=== PATIENT | female | born 1945 | race Caucasian/White ===

== ENCOUNTER 2018-03-21 10:30 | Emergency (ER) | payer MEDICARE, OTHER ==
--- NOTE | 2018-03-21 11:43 | ER Document Report ---
ED Medical Screen (RME) - General Chief Complaint: Accidental Overdose Stated Complaint: POSSIBLE OVERDOSE Time Seen by Provider: 03/21/18 11:14 Mode of Arrival: Ambulatory Information source: Patient Notes: This is a 72-year-old female with a history of hypertension and GERD who took her 's morning medicines by accident. The ingestion was at 8:50 AM. Patient denies any chest pain, shortness of breath, dizziness or syncope. The medicines she ingested are as follows: Eliquis x1 Finasteride 5 mg Metoprolol 50 mg (regular release) Losartan 50 mg Amlodipine 5 mg Myrbetriq 50 mg Potassium Debra Case was discussed with poison control. They recommended monitoring for 6 hours in the ER from the time of ingestion. Thereafter, on discharge, give patient instructions on orthostatic hypotension over the next 12-24 hours given that the amlodipine will not peak for 8-12 hours. TRAVEL OUTSIDE OF THE [place] IN LAST 30 DAYS: No - Related Data Allergies/Adverse Reactions: meperidine [From Demerol] Allergy (Verified 03/21/18 10:31) Sulfa (Sulfonamide Antibiotics) Adverse Reaction (Verified 03/21/18 10:31) Past Medical History - Social History Chew tobacco use (# tins/day): No Frequency of alcohol use: None Drug Abuse: None - Past Medical History Cardiac Medical History: Reports: Hx Hypertension Renal/ Medical History: Denies: Hx Peritoneal Dialysis Physical Exam - Vital signs Vitals: Temp Pulse Resp BP Pulse Ox 98.6 F 60 16 148/77 H 98 03/21/18 10:38 03/21/18 10:38 03/21/18 10:38 03/21/18 10:38 03/21/18 10:38 Course - Vital Signs Vital signs: Temp Pulse Resp BP Pulse Ox 98.6 F 60 16 148/77 H 98 03/21/18 10:38 03/21/18 10:38 03/21/18 10:38 03/21/18 10:38 03/21/18 10:38
[2018-03-21 12:05] LABS: ABSOLUTE BASOPHILS # (AUTO) 0.1 10^3/uL (0.0-0.2); ABSOLUTE EOSINOPHILS # (AUTO) 0.1 10^3/uL (0.0-0.6); ABSOLUTE LYMPHOCYTES (AUTO) 1.4 10^3/uL (0.5-4.7); ABSOLUTE MONOCYTES (AUTO) 0.7 10^3/uL (0.1-1.4); ABSOLUTE NEUT (AUTO) 4.4 10^3/uL (1.7-8.2); BASOPHILS % (AUTO) 1.1 % (0-2); EOSINOPHILS % (AUTO) 1.9 % (0-6); HEMATOCRIT 40.7 % (36.0-47.0); LYMPHOCYTES % (AUTO) 20.9 % (13-45); MEAN CORPUSCULAR HEMOGLOBIN 28.7 pg (27.0-33.4); MEAN CORPUSCULAR HGB CONC 34.5 g/dL (32.0-36.0); MEAN CORPUSCULAR VOLUME 83 fl (80-97); MONOCYTES % (AUTO) 10.3 % (3-13); PLATELET COUNT 300 10^3/uL (150-450); RED CELL DISTRIBUTION WIDTH 13.6 % (11.5-14.0); SEGMENTED NEUTROPHILS % (AUTO) 65.8 % (42-78); TOTAL CELLS COUNTED % (AUTO) 100 %; WHITE BLOOD COUNT 6.7 10^3/uL (4.0-10.5)
--- NOTE | 2018-03-21 12:23 | ER Document Report ---
ED General - General Chief Complaint: Accidental Overdose Stated Complaint: POSSIBLE OVERDOSE Time Seen by Provider: 03/21/18 11:14 Mode of Arrival: Ambulatory TRAVEL OUTSIDE OF THE [place] IN LAST 30 DAYS: No - HPI Notes: Patient is a 72-year-old female that presents to the emergency department for chief complaint of accidental overdose. At 9 AM this morning patient states she accidentally took her 's medication. She states daily she puts them in a cup for him to take. She states there was a lot going on and she did not realize she was taking his medicine instead of hers. She is currently asymptomatic. She denies having any symptoms throughout today. She denies any intentional overdose or suicidal thoughts. She denies nausea, vomiting, lightheadedness and near syncope. Listed below are the medications she took. Eliquis x1 Finasteride 5 mg Metoprolol 50 mg (regular release) Losartan 50 mg Amlodipine 5 mg Myrbetriq 50 mg Potassium Debra Past Medical History: Hypertension, GERD Past Surgical History: Hysterectomy Social History: Denies drugs alcohol and tobacco Family History: Reviewed and noncontributory for presenting illness Allergies: Reviewed, see documented allergy list. REVIEW OF SYSTEMS: CONSTITUTIONAL : No fever No chills No diaphoresis No recent illness EENT: No vision changes No congestion No sore throat CARDIOVASCULAR: No chest pain No palpitations RESPIRATORY: No shortness of breath No cough No difficulty breathing GASTROINTESTINAL: No abdominal pain No nausea No vomiting No diarrhea GENITOURINARY: No dysuria No hematuria No difficulty urinating MUSCULOSKELETAL: No back pain No leg pain No arm pain SKIN: No rashes No lesions LYMPHATIC: No swollen, enlarged glands. NEUROLOGICAL: No lightheadedness No headache No weakness No paresthesias PSYCHIATRIC: No anxiety No depression PHYSICAL EXAMINATION: Vital signs reviewed, nursing noted reviewed. GENERAL: Well-appearing, well-nourished and in no acute distress. HEAD: Atraumatic, normocephalic. EYES: Eyes appear normal, extraocular movements intact, sclera anicteric, conjunctiva are normal. ENT: nares patent, oropharynx clear without exudates. Moist mucous membranes. NECK: Normal range of motion, supple without lymphadenopathy LUNGS: Breath sounds clear to auscultation bilaterally and equal. No wheezes rales or rhonchi. HEART: Regular rate and rhythm without murmurs ABDOMEN: Soft, nontender, normoactive bowel sounds. No rebound, guarding, or rigidity. No masses appreciated. EXTREMITIES: Nontender, good range of motion, no pitting or edema. NEUROLOGICAL: No focal neurological deficits. Moves all extremities spontaneously Motor and sensory grossly intact on exam. PSYCH: Normal mood, normal affect. SKIN: Warm, Dry, normal turgor, no rashes or lesions noted on exposed skin - Related Data Allergies/Adverse Reactions: meperidine [From Demerol] Allergy (Verified 03/21/18 10:31) Sulfa (Sulfonamide Antibiotics) Adverse Reaction (Verified 03/21/18 10:31) Past Medical History - General Information source: Patient - Social History Smoking Status: Never Smoker Chew tobacco use (# tins/day): No Frequency of alcohol use: None Drug Abuse: None Family History: Reviewed & Not Pertinent Patient has suicidal ideation: No Patient has homicidal ideation: No - Past Medical History Cardiac Medical History: Reports: Hx Hypertension Renal/ Medical History: Denies: Hx Peritoneal Dialysis Physical Exam - Vital signs Vitals: Temp Pulse Resp BP Pulse Ox 98.6 F 60 16 148/77 H 98 03/21/18 10:38 03/21/18 10:38 03/21/18 10:38 03/21/18 10:38 03/21/18 10:38 Course - Re-evaluation Re-evalutation: 03/21/18 12:22 Vitals reviewed. Nursing notes reviewed. Patient is currently asymptomatic. Poison control was contacted and recommended observation for 6 hours post ingestion. Patient will be monitored until 3 PM at which point if she is hemodynamically stable she will be discharged home. I did discuss orthostasis and potential for hypotension with her. She is currently resting comfortably and will continue to be monitored. 03/21/18 15:19 Patient reevaluated and has remained asymptomatic. Her blood pressure and heart rate are stable. She was counseled on symptoms of orthostasis to monitor for for the remainder of the evening. She was again encouraged to stay well- hydrated. She is tolerating oral intake. She will follow closely with her primary care for reevaluation as needed in the next few days. She will return for any new or worsening symptoms. She is stable at discharge. Laboratory 03/21/18 03/21/18 11:50 11:50 WBC 6.7 RBC 4.90 Hgb 14.0 Hct 40.7 MCV 83 MCH 28.7 MCHC 34.5 RDW 13.6 Plt Count 300 Seg Neutrophils % 65.8 Lymphocytes % 20.9 Monocytes % 10.3 Eosinophils % 1.9 Basophils % 1.1 Absolute Neutrophils 4.4 Absolute Lymphocytes 1.4 Absolute Monocytes 0.7 Absolute Eosinophils 0.1 Absolute Basophils 0.1 Sodium 135.1 L Potassium 4.6 Chloride 94 L Carbon Dioxide 34 H Anion Gap 7 BUN 15 Creatinine 0.72 Est GFR ( Amer) > 60 Est GFR (Non-Af Amer) > 60 Glucose 96 Calcium 10.2 Total Bilirubin 0.8 Direct Bilirubin 0.4 Neonat Total Bilirubin Not Reportable Neonat Direct Bilirubin Not Reportable Neonat Indirect Bili Not Reportable AST 31 ALT 29 Alkaline Phosphatase 56 Total Protein 7.3 Albumin 4.8 - Vital Signs Vital signs: Temp Pulse Resp BP Pulse Ox 98.6 F 60 14 138/75 H 98 03/21/18 10:38 03/21/18 10:38 03/21/18 14:11 03/21/18 14:11 03/21/18 14:01 - Laboratory Result Diagrams: 03/21/18 11:50 03/21/18 11:50 Laboratory results interpreted by me: 03/21/18 11:50 Sodium 135.1 L Chloride 94 L Carbon Dioxide 34 H Discharge - Discharge Clinical Impression: Accidental overdose Qualifiers: Encounter type: initial encounter Qualified Code(s): T50.901A - Poisoning by unspecified drugs, medicaments and biological substances, accidental (unintentional), initial encounter Condition: Stable Disposition: HOME, SELF-CARE Instructions: Orthostatic Hypotension ([facility]) Additional Instructions: Please return to the emergency department if you have any worsening, or concern of your symptoms. Please return to the emergency department if you develop chest pain, difficulty breathing, severe abdominal pain, or ongoing vomiting. Please follow-up with your primary care physician in 2-3 days and any other recommended physicians. If prescribed, take all medications as directed. If you have any questions or concerns do not hesitate to return the emergency department for evaluation. You were provided information on orthostatic hypotension. This is when your blood pressure transiently drops. Because of the medication you ingested you may feel similar symptoms. If you feel lightheaded you should return to the emergency room for reevaluation. Stay well-hydrated this evening to prevent any drop in your blood pressure.
[2018-03-21 12:26] LABS: ALANINE AMINOTRANSFERASE 29 U/L (9-52); ALBUMIN 4.8 g/dL (3.5-5.0); ALKALINE PHOSPHATASE 56 U/L (38-126); ANION GAP 7 (5-19); ASPARTATE AMINO TRANSFERASE 31 U/L (14-36); BILIRUBIN,DIRECT 0.4 mg/dL (0.0-0.4); BILIRUBIN,TOTAL 0.8 mg/dL (0.2-1.3); BLOOD UREA NITROGEN 15 mg/dL (7-20); CALCIUM 10.2 mg/dL (8.4-10.2); CARBON DIOXIDE 34 mmol/L (22-30); CHLORIDE 94 mmol/L (98-107); GLUCOSE 96 mg/dL (75-110); POTASSIUM 4.6 mmol/L (3.6-5.0); SODIUM 135.1 mmol/L (137-145); TOTAL PROTEIN 7.3 g/dL (6.3-8.2)
[2018-03-21 15:25] VITALS: BP 127/63
== END 2018-03-21 15:39 | disposition home or self-care (01) ==
LOC: ER 10:30
DX: T45.0X1A Poisoning by antiallergic and antiemetic drugs, accidental (unintentional), initial encounter (principal); T50.3X1A Poisoning by electrolytic, caloric and water-balance agents, accidental (unintentional), initial encounter; T46.5X1A Poisoning by other antihypertensive drugs, accidental (unintentional), initial encounter; T44.7X1A Poisoning by beta-adrenoreceptor antagonists, accidental (unintentional), initial encounter; Y92.009 Unspecified place in unspecified non-institutional (private) residence as the place of occurrence of the external cause; I10 Essential (primary) hypertension; K21.9 Gastro-esophageal reflux disease without esophagitis; Z90.710 Acquired absence of both cervix and uterus; Z88.2 Allergy status to sulfonamides
CPT/HCPCS: 36415; 80053; 85025; 99284